=== PATIENT | female | born 1955 | race Caucasian/White ===

== ENCOUNTER 2024-07-03 10:42 | Emergency (ER) | payer SELFPAY ==
[2024-07-03 11:25] VITALS: BP 142/73; PULSE 80; RESP 18; TEMP 98.6; BMI 24.3
[2024-07-03] MEDS ORDERED: ACETAMINOPHEN INJECTION 100 ML ONE (11:32)
[2024-07-03] MEDS: ACETAMINOPHEN 1000 MG/100 ML BAG IVPB ONE (12:00)
[2024-07-03] MEDS: SODIUM CHLORIDE 0.9% 500 ML INFUS.BAG IV ONE (12:02)
[2024-07-03 12:05] LABS: BASO % 0.2 % (0-2.0); EOS % 1.1 % (0-4.5); HEMATOCRIT 39.6 % (32.4-45.2); HEMOGLOBIN 13.5 GM/dL (10.7-15.3); LYMPH % 25.1 % (8-40); MCH 30.5 pg (25.7-33.7); MCHC 34.2 g/dl (32.0-36.0); MEAN CELL VOLUME 89.2 fl (80-96); MEAN PLT VOLUME 9.5 fl (7.5-11.1); MONO % 8.6 % (3.8-10.2); PLATELET COUNT 169 10^3/uL (134-434); RBC 4.43 M/mm3 (3.60-5.2); RDW 13.1 % (11.6-15.6); WHITE BLOOD COUNT 7.1 K/mm3 (4.0-10.0)
[2024-07-03 12:36] LABS: POTASSIUM 4.7 mmol/L (3.5-5.1)
[2024-07-03 12:37] LABS: CALCIUM 9.1 mg/dL (8.5-10.1)
[2024-07-03 12:39] LABS: ALBUMIN 3.5 g/dl (3.4-5.0); BLOOD UREA NITROGEN 12.9 mg/dL (7-18)
[2024-07-03 12:41] LABS: CREATININE 0.7 mg/dL (0.55-1.3)
[2024-07-03 12:43] LABS: BILIRUBIN,TOTAL 0.4 mg/dL (0.2-1); TOT PROT 7.1 g/dl (6.4-8.2)
[2024-07-03 13:32] LABS: HIV INTERPRETATION NEGATIVE (NEGATIVE)
[2024-07-03 13:34] LABS: PH,URINE 6.5 (5.0-8.0); URINE APPEARANCE CLEAR; URINE BILIRUBIN NEGATIVE (NEGATIVE); URINE COLOR YELLOW; URINE GLUCOSE (UA) NEGATIVE (NEGATIVE); URINE KETONE NEGATIVE (NEGATIVE); URINE LEUK ESTERASE NEGATIVE (NEGATIVE); URINE NITRITE NEGATIVE (NEGATIVE); URINE PROTEIN NEGATIVE (NEGATIVE); URINE UROBILINOGEN 0.2 mg/dL (0.2-1.0)
== END 2024-07-03 16:17 | disposition home or self-care (01) ==
LOC: JER 10:42
PROC: 3E033NZ Introduction of Analgesics, Hypnotics, Sedatives into Peripheral Vein, Percutaneous Approach (ICD-10-PCS; principal; 2024-07-03)
DX: R10.2 Pelvic and perineal pain (principal); R35.0 Frequency of micturition; R30.0 Dysuria; Z20.822 Contact with and (suspected) exposure to COVID-19
CPT/HCPCS: 0241U-QW; 36415; 76856-TC; 80053; 81003; 85025; 86803; 87086; 87389; 99284-25; J0131